=== PATIENT | male | born 1990 | race Caucasian/White ===

== ENCOUNTER 2021-08-21 21:59 | Emergency (ER) | payer SELFPAY ==
[~2021-08-21] VITALS: Ht 188 cm; Wt 127.0 kg
--- NOTE | 2021-08-21 22:21 | NUR ---
PT BIB [facility] FOR SUICIDAL IDEATION WITH INTENT. PT REPROTS "I'M NOT RIGHT IN THE HEAD" PT REPORTS USING [facility] 5 HOURS AGO. PT IF AGGITATED AND TEARFUL. PT CHANGED INTO GOWN AND BELONGS PLACED IN SECURITY. PT LAYING ON STRETCHER. GARAGE DOORS DOWN AND LOCKED. SITTER AT BEDSIDE.
[2021-08-21 22:46] LABS: BASOPHILS % (AUTO) 1 % (0-1); EOSINOPHILS % (AUTO) 2 % (1-7); LYMPHOCYTES % (AUTO) 37 % (22-44); MEAN CORPUSCULAR HEMOGLOBIN 30.7 pg (27.5-34.5); MEAN CORPUSCULAR HGB CONC 34.6 g/dL (33.2-36.2); MEAN PLATELET VOLUME 8.7 fL (7.4-10.4); MONOCYTES % (AUTO) 10 % (2-9); NEUTROPHILS % (AUTO) 50 % (42-75); PLATELET COUNT 229 x10^3/uL (130-400); RED CELL DISTRIBUTION WIDTH 13.8 % (9.4-14.8)
[2021-08-21 22:49] LABS: ALANINE AMINOTRANSFERASE 49 U/L (12-78); ALBUMIN 3.7 g/dL (3.4-5.0); ANION GAP 4 mmol/L (5-15); CALCIUM 8.8 mg/dL (8.5-10.1); CHLORIDE 107 mmol/L (98-107); CREATININE 1.26 mg/dL (0.7-1.3)
[2021-08-21 22:50] LABS: SALICYLATE LEVEL < 1.7 mg/dL (2.8-20.0)
[2021-08-21 22:51] LABS: ALKALINE PHOSPHATASE 110 U/L (45-117); BILIRUBIN,TOTAL 0.5 mg/dL (0.2-1.0); TOTAL PROTEIN 7.5 g/dL (6.4-8.2)
--- NOTE | 2021-08-21 23:07 | NUR ---
URINE COLLECTED AND SENT TO LAB
[2021-08-21 23:30] LABS: AMPHETAMINE SCREEN, URINE Positive (Negative); BARBITURATE SCREEN, URINE Negative (Negative); BENZODIAZEPINE SCREEN, URINE Negative (Negative); CANNABINOID SCREEN, URINE Positive (Negative); COCAINE SCREEN, URINE Negative (Negative); METHADONE SCREEN, URINE Negative (Negative); OPIATE SCREEN, URINE Negative (Negative)
--- NOTE | 2021-08-21 23:56 | NUR ---
PSYCH PRECAUTIONS MAINTAINED. GARAGE DOORS LOCKED. SITTER AT BEDSIDE. PT SLEEPING IN [facility].
--- NOTE | 2021-08-22 01:05 | NUR ---
PSYCH PRECAUTIONS MAINTAINED. GARAGE DOORS LOCKED. SITTER AT BEDSIDE. PT SLEEPING IN [facility].
--- NOTE | 2021-08-22 03:52 | NUR ---
PSYCH PRECAUTIONS MAINTAINED. GARAGE DOORS LOCKED. SITTER AT BEDSIDE. PT SLEEPING IN [facility].
[2021-08-22 04:23] VITALS: BP 110/66
--- NOTE | 2021-08-22 05:00 | NUR ---
NEW CLEAN SHIRT, SWEATS, AND SOCKS PROVIDED FOR PT.
--- NOTE | 2021-08-22 05:17 | NUR ---
PT APPEARS MORE SOBER THAN WHEN HE FIRST ARRIVED. OUTLOOK HAS CHANGED. PT DENIES SUICIDAL IDEATION. TAXI VOUCHER TO HOMELESS RESIDENTIAL PROVIDED.
== END 2021-08-22 05:20 | disposition home or self-care (01) ==
LOC: ED 22:15
DX: F32.0 Major depressive disorder, single episode, mild (principal); F15.150 Other stimulant abuse with stimulant-induced psychotic disorder with delusions; Z72.9 Problem related to lifestyle, unspecified; F17.200 Nicotine dependence, unspecified, uncomplicated
CPT/HCPCS: 36415; 80053; 80299; 80307; 80320; 80329; 85025; 99283; G0480